=== PATIENT | male | born 1995 | race Caucasian/White ===

== ENCOUNTER 2019-11-03 22:02 | Emergency (ER) | payer SELFPAY ==
--- NOTE | 2019-11-03 23:12 | ER ---
Nurse's Notes [facility] Name: Allan Cerna Age: 24 yrs Sex: Male : 1995 Arrival Date: 11/03/2019 Time: 22:07 Bed 7 Private MD: Diagnosis: Presentation: 11/02 22:15 Chief complaint: Patient states: Attempted to get snake out of yard when he was bitten lp1 to left first finger, left hand and wrist swelling noted; + ETOH, denies pain. Coronavirus screen: Proceed with normal triage. Ebola Screen: No symptoms or risks identified at this time. Initial Sepsis Screen: Does the patient meet any 2 criteria? No. Patient's initial sepsis screen is negative. Does the patient have a suspected source of infection? No. Patient's initial sepsis screen is negative. Risk Assessment: Do you want to hurt yourself or someone else? Patient reports no desire to harm self or others. Onset of symptoms was November 03, 2019 at 21:00. 22:15 Method Of Arrival: Ambulatory lp1 22:15 Acuity: MELINDA 2 lp1 Triage Assessment: 22:37 Bite description: bite sustained to left hand by a snake, animal information: ea vaccination(s) is unknown. Historical: - Allergies: 22:18 No Known Allergies; lp1 - Home Meds: 22:18 Nexium Oral [Active]; lp1 - PMHx: 22:18 GERD; lp1 - PSHx: 22:18 Tonsillectomy; lp1 - Immunization history:: Adult Immunizations up to date. - Social history:: Smoking status: Patient reports the use of cigarette tobacco products, smokes two packs cigarettes per day. Patient uses alcohol, on a daily basis. Screenin:23 Abuse screen: Denies threats or abuse. Nutritional screening: No deficits noted. ea Tuberculosis screening: No symptoms or risk factors identified. Fall Risk None identified. Assessment: 22:36 General: Appears in no apparent distress. Behavior is calm, cooperative, appropriate ea for age. Pain: Complains of pain in left hand. Neuro: Level of Consciousness is awake, alert, obeys commands, Oriented to person, place, time. Cardiovascular: Patient's skin is warm and dry. Respiratory: Airway is patent Respiratory effort is even, unlabored, Respiratory pattern is regular, symmetrical. Derm: swelling noted to right arm. 22:44 Reassessment: Reilly Michael at poison control ([facility]) reports to elevate arm to ea cardiac neutral. splint arm to limit movement of arm, wound care, tetanus if not up to date, watch for rapid progression of swelling, obtain coag labs if any are abnormal start CroFab. 22:53 Reassessment: Pt refusing IV and labs states " I do not want to get stuck with a ea needle, I just don't want it" Pt verbalized the understanding of need for labs and possible need for CroFab, pt continues to refuse interventions. Pt walked out of the room stated he is not going to get the IV. Girlfriend contacted mom, mom reports she would try to convince him to get treatment. Provider notified. 23:07 Reassessment: Pt and family did not return to room, pt not found in lobby. ea Vital Signs: 22:15 BP 151 / 103; Pulse 108; Resp 18; Temp 98.5(O); Pulse Ox 98% on R/A; Weight 77.11 kg lp1 (R); Pain 0/10; ED Course: 22:07 Patient arrived in ED. cf2 22:12 Felipa Arroyo, RN is Primary Nurse. ea 22:17 Triage completed. lp1 22:18 Arm band placed on right wrist. lp1 22:19 Chano Shi MD is Attending Physician. tw4 22:23 Patient has correct armband on for positive identification. Call light in reach. ea Administered Medications: No medications were administered Outcome: 23:08 AMA Left before signing form. ea 23:25 Patient left the ED. ea Signatures: Caridad Jorge, RN RN lp1 Felipa Arroyo, RN Chano Oswald ea, MD MD tw4 Milana Barrios cf2 Corrections: (The following items were deleted from the chart) 23:00 22:53 Reassessment: Pt refusing IV and labs states " I do not want to get stuck with a ea needle, I just don't want it" Pt verbalized the understanding of need for labs and possible need for CroFab, pt continues to refuse interventions. Pt walked out of the room stated he is not going to get the IV. Girlfriend contacted mom, mom reports she would try to convince him to get treatment. Provider notified. ea
[2019-11-03 23:32] VITALS: BP 151/103; TEMP 98.5; O2SAT 98
--- NOTE | 2019-11-04 23:25 | EDPHYS ---
Physician Documentation [facility] Name: Allan Cerna Age: 24 yrs Sex: Male : 1995 Arrival Date: 11/03/2019 Time: 22:07 Bed 7 Private MD: ED Physician Chano Shi HPI: 11/03 06:04 This 24 yrs old Male presents to ER via Ambulatory with complaints of Snake tw4 bite. 06:04 The patient was bitten on the dorsal aspect of proximal phalanx of left index finger, tw4 by a snake. Onset: The symptoms/episode began/occurred today, 1 hour(s) ago. Animal information: Patient/Caregiver unable to provide information related to the animal. Secondary to the bite the patient reports pain, swelling. Associated signs and symptoms: The patient has no apparent associated signs or symptoms. The patient has not experienced similar symptoms in the past. Historical: - Allergies: 11/02 22:18 No Known Allergies; lp1 - Home Meds: 22:18 Nexium Oral [Active]; lp1 - PMHx: 22:18 GERD; lp1 - PSHx: 22:18 Tonsillectomy; lp1 - Immunization history:: Adult Immunizations up to date. - Social history:: Smoking status: Patient reports the use of cigarette tobacco products, smokes two packs cigarettes per day. Patient uses alcohol, on a daily basis. ROS: 11/03 06:04 Constitutional: Negative for fever, chills, and weight loss, Eyes: Negative for injury, tw4 pain, redness, and discharge, Cardiovascular: Negative for chest pain, palpitations, and edema, Respiratory: Negative for shortness of breath, cough, wheezing, and pleuritic chest pain, Abdomen/GI: Negative for abdominal pain, nausea, vomiting, diarrhea, and constipation, Back: Negative for injury and pain. MS/extremity: Positive for injury or acute deformity, pain, swelling, tenderness. Exam: 06:04 Constitutional: This is a well developed, well nourished patient who is awake, alert, tw4 and in no acute distress. Head/Face: Normocephalic, atraumatic. Chest/axilla: Normal chest wall appearance and motion. Nontender with no deformity. No lesions are appreciated. Cardiovascular: Regular rate and rhythm with a normal S1 and S2. No gallops, murmurs, or rubs. Normal PMI, no JVD. No pulse deficits. Respiratory: Lungs have equal breath sounds bilaterally, clear to auscultation and percussion. No rales, rhonchi or wheezes noted. No increased work of breathing, no retractions or nasal flaring. Abdomen/GI: Soft, non-tender, with normal bowel sounds. No distension or tympany. No guarding or rebound. No evidence of tenderness throughout. 06:04 Musculoskeletal/extremity: Extremities: noted in the dorsal aspect of proximal phalanx of left index finger: ROM: limited active range of motion due to pain, limited passive range of motion due to pain. Vital Signs: 11/02 22:15 BP 151 / 103; Pulse 108; Resp 18; Temp 98.5(O); Pulse Ox 98% on R/A; Weight 77.11 kg lp1 (R); Pain 0/10; MDM: 22:19 Patient medically screened. tw4 11/03 06:04 Differential diagnosis: superficial laceration. Data reviewed: vital signs, nurses tw4 notes. Data interpreted: Pulse oximetry: Interpretation: normal. Counseling: I had a detailed discussion with the patient and/or guardian regarding: the historical points, exam findings, and any diagnostic results supporting the discharge/admit diagnosis, the presence of at least one elevated blood pressure reading (>120/80) during this emergency department visit. Refusal of service: The patient/guardian displays adequate decision making capability and despite a detailed discussion of alternatives, benefits, risks, and consequences refuses: Admission to the hospital for further work-up and treatment, Medications. Special discussion: I discussed with the patient/guardian in detail that at this point there is no indication for admission to the hospital. It is understood, however, that if the symptoms persist or worsen the patient needs to return immediately for re-evaluation. Administered Medications: No medications were administered Disposition: 11/03/19 23:11 Patient has left against medical advice. - Patients states they are going to Home. - Condition is Stable. Signatures: Dispatcher [employer] EDMS Caridad Jorge RN RN lp1 Felipa Arroyo RN RN ea Wadley, Terrence, MD MD tw4 Corrections: (The following items were deleted from the chart) 11/02 23:25 23:11 11/03/2019 23:11 Patients has left against medical advice. Patient states they ea are going to Home. Condition is Stable. ea
== END 2019-11-03 23:25 | disposition left against medical advice (07) ==
LOC: ER 22:02
DX: S61.251A Open bite of left index finger without damage to nail, initial encounter (principal); K21.9 Gastro-esophageal reflux disease without esophagitis; F17.210 Nicotine dependence, cigarettes, uncomplicated; Z53.29 Procedure and treatment not carried out because of patient's decision for other reasons
CPT/HCPCS: 99281